=== PATIENT | male | born 1970 | race Caucasian/White ===

== ENCOUNTER 2017-05-04 01:18 | Observation (INO) | payer BC ==
--- NOTE | ~2017-05-04 | HP ---
History And Physical [place] [id number] [facility] [place]. [address] NAME: MIHAI PATEL : 72 STATUS : ADM Fadumo PAT#: [id number] AGE: 46 ADM/REG DATE : 05/04/17 MR#: [id number] REPORT SERV DATE: 05/04/17 DICTATED BY: DATE: REPORT STATUS : Draft TRANSCRIBED BY: MODL DATE: 05/04/17 DATE OF ADMISSION: 05/04/2017 CHIEF COMPLAINT: Chest pain and pressure. HISTORY OF PRESENT ILLNESS: This is a very pleasant 46-year-old white male without any cardiac history, who reports to have developed chest pain and pressure of 8/10 radiating to his left arm. He reports that he did have some nausea associated with his chest pain and feeling of "cotton mouth." He reports that he was resting, he was not doing anything to exert himself during this event. He denies having any shortness of breath, vomiting, or any diaphoresis. He does report that the chest pain lasted for about 5 to 6 hours, and was resolved by taking one nitroglycerin from the paramedics that came to pick him up from his house. He reports that the chest pain and pressure have not reoccurred since then, and he feels a lot better at this time. The patient denies any personal history of a myocardial infarction, stroke, DVT, or pulmonary embolus. The patient denies any recent fever or chills. No palpitations. No syncopal episodes. He denies PND or orthopnea. PAST MEDICAL HISTORY: The patient reports to have GERD, allergies, and generalized rash that occurred in October from an unknown source. PAST SURGICAL HISTORY: He had an appendectomy and left ankle surgery. 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 He is and has one child of his own. He denies any tobacco use. He denies any alcohol use. He denies any illicit drug use. FAMILY HISTORY: His mother had a history of hypertension and an AK at the age of 37 which she from. Father had melanoma cancer and no history of any heart problems. REVIEW OF SYSTEMS: A 14-point review of systems was performed significant for HPI. No other contributory diagnoses identified. ALLERGIES: MORPHINE, REACTION IS ITCHING. HOME MEDICATIONS: 1. Aspirin 81 mg p.o. daily. 2. B complex vitamin 1 tablet p.o. daily. 3. Protonix 40 mg p.o. daily. PHYSICAL EXAMINATION: VITAL SIGNS: Blood pressure 134/79, heart rate 69, temperature 97.7, respirations 18, and O2 saturation 95%. GENERAL: Cooperative, in no apparent distress. History And Physical [place] [address] [place]. [address] NAME: MIHAI PATEL : 72 STATUS : ADM Fadumo PAT#: [id number] AGE: 46 ADM/REG DATE : 05/04/17 MR#: [id number] REPORT SERV DATE: 05/04/17 DICTATED BY: DATE: REPORT STATUS : Draft TRANSCRIBED BY: MODL DATE: 05/04/17 HEENT: Head normocephalic, anicteric. Normal EOM. PERRLA. No xanthelasma. Nares patent. Moist mucous membranes. NECK: Trachea midline. No thyromegaly, JVD or bruits. LUNGS: Left base is mildly diminished CARDIOVASCULAR: Regular rate and rhythm. No murmur, rub or gallop appreciated. No chest wall tenderness to palpation. ABDOMEN: Soft, nontender, nondistended, normal bowel sounds auscultated throughout. No masses or organomegaly. EXTREMITIES: No peripheral edema. DP/PT and radial pulses palpable bilaterally. No clubbing or cyanosis. SKIN: Warm, dry and intact. Normal turgor. No pallor or cyanosis. NEURO/PSYCH: Alert, oriented x3 with no acute distress. Affect appropriate to current situation. LABORATORY DATA: Troponin x2 less than 0.02. Sodium 141, potassium 3.9, BUN 14, creatinine 1.10, GFR 93, glucose 94, calcium 8.4, and magnesium 2.2. White blood cells 8.9, hemoglobin 16.2, hematocrit 47.2, and platelets 148. INR 1.1. IMAGING: Chest x-ray shows small amount of nonspecific atelectasis at the left lung base. EKG showed sinus rhythm, 60. Lateral Q-waves noted, nonspecific T-wave abnormalities. surveillance system monitor shows sinus rhythm, 62. No ectopy, no pauses, no arrhythmias noted. Stress test dated 12/01/2012 showed Miller stage 3, achieved 91% max heart rate. Post exercise left ventricular ejection fraction of greater than 60%. Imaging demonstrated no ischemia as above. Overall low risk stress test. ASSESSMENT AND PLAN: 1. Chest pain. Troponins x2 have been negative. The patient denies any chest pain recurrent since that one event. His cardiac risk factors include family history. Today, we will keep the patient n.p.o. and plan an MPI. The patient has been observed to rule out myocardial infarction with serial enzymes and serial EKGs. If his stress test shows low risk or no ischemia, the patient will may be discharged to home, and follow up with his PCP in one week with all the studies being sent to the office. If anything suggestive of ischemia, Cardiology referral will be initiated at that time. 2. Gastroesophageal reflux disease. Protonix per home medication schedule. EKS/MODL Cheyenne Garcia APN / [id number] CC: Trish Kyle, MSN, [employer]- History And Physical [address] [address] NAME: MIHAI PATEL : 72 STATUS : ADM Fadumo PAT#: [id number] AGE: 46 ADM/REG DATE : 05/04/17 MR#: [id number] REPORT SERV DATE: 05/04/17 DICTATED BY: DATE: REPORT STATUS : Draft TRANSCRIBED BY: MODL DATE: 05/04/17 Nathaniel Cullen M.D.
[2017-05-04 00:33] LABS: BASOPHILS 0.4 %; BASOPHILS ABSOLUTE 0.04 10/3/uL (0.0-0.16); EOSINOPHILS 1.3 %; EOSINOPHILS ABSOLUTE 0.12 10/3/uL (0.0-0.53); ER CBC TAT 0 Hrs 00 Mins; HEMATOCRIT 47.2 % (40.0-51.0); HEMOGLOBIN 16.2 g/dL (13.6-17.8); IMMATURE GRANULOCYTES 0.3 %; IMMATURE GRANULOCYTES ABSOLUTE 0.03 10/3/uL (0.0-0.11); LYMPHOCYTES 10.3 %; LYMPHOCYTES ABSOLUTE 0.92 10/3/uL (0.67-4.30); MANUAL DIFF NO %; MEAN CORPUS HGB CONC 34.3 g/dL (32.0-36.0); MEAN CORPUSCULAR HEMOGLOB 30.4 pg (26.0-34.0); MEAN CORPUSCULAR VOLUME 88.6 fL (80-100); MEAN PLATELET VOLUME 10.9 fL (9.2-13.0); MONOCYTES 6.5 %; MONOCYTES ABSOLUTE 0.58 10/3/uL (0.21-1.20); NEUTROPHILS 81.2 %; NEUTROPHILS ABSOLUTE 7.21 10/3/uL (2.02-8.40); PLATELET COUNT 148 10/3/uL (150-400); RED CELL COUNT 5.33 10/6/uL (4.7-6.1); WHITE BLOOD CELLS 8.9 10/3/uL (4.5-10.5)
[2017-05-04 00:39] LABS: INTERNATIONAL NORMAL RATI 1.1 UNITS (-); PARTIAL THROMBO TIME 26.2 SEC (22.5-37.2); PROTIME (NOT ORD) 14.2 SEC (12.0-14.5)
[2017-05-04 00:49] LABS: BUN (BLOOD UREA NITROGEN) 14 MG/DL (6-23); CALCIUM, SERUM 8.4 MG/DL (8.5-10.4); CHEST PAIN PROFILE TAT 0 Hrs 00 Mins; CHLORIDE, SERUM 109 MMOL/L (96-112); CO2 (CARBON DIOXIDE) 27 MMOL/L (24-34); GFR AFRICAN AMERICAN 93 ML/MIN (>=60); GFR NON AFRICAN AMERICAN 81 ML/MIN (>=60); POTASSIUM, SERUM 3.9 MMOL/L (3.5-5.3); SODIUM, SERUM 141 MMOL/L (135-148); TROPONIN I <0.02 NG/ML (<0.05)
[2017-05-04 00:51] LABS: GLUCOSE, SERUM 94 MG/DL (60-99)
[~2017-05-04 01:18] MED LIST: PROTONIX PO; PROTONIX20 MG PO
[2017-05-04] MEDS ORDERED: ASAB PO (02:01)
[2017-05-04] MEDS ORDERED: VITAMIN B PO (02:02)
[2017-05-04] MEDS ORDERED: PROTONIX PO (02:02)
[2017-05-05 05:37] LABS: BASOPHILS 0.3 %; BASOPHILS ABSOLUTE 0.02 10/3/uL (0.0-0.16); EOSINOPHILS 2.8 %; EOSINOPHILS ABSOLUTE 0.19 10/3/uL (0.0-0.53); HEMATOCRIT 47.3 % (40.0-51.0); HEMOGLOBIN 16.1 g/dL (13.6-17.8); IMMATURE GRANULOCYTES 0.4 %; IMMATURE GRANULOCYTES ABSOLUTE 0.03 10/3/uL (0.0-0.11); LYMPHOCYTES 27.6 %; LYMPHOCYTES ABSOLUTE 1.85 10/3/uL (0.67-4.30); MEAN CORPUSCULAR HEMOGLOB 30.4 pg (26.0-34.0); MEAN CORPUSCULAR VOLUME 89.4 fL (80-100); MEAN PLATELET VOLUME 11.2 fL (9.2-13.0); MONOCYTES 8.7 %; MONOCYTES ABSOLUTE 0.58 10/3/uL (0.21-1.20); NEUTROPHILS 60.2 %; NEUTROPHILS ABSOLUTE 4.03 10/3/uL (2.02-8.40); PLATELET COUNT 144 10/3/uL (150-400); RBC DISTRIBUTION WIDTH 13.1 % (12.0-16.0); RED CELL COUNT 5.29 10/6/uL (4.7-6.1); WHITE BLOOD CELLS 6.7 10/3/uL (4.5-10.5)
[2017-05-05 05:39] LABS: MANUAL DIFF NO %
[2017-05-05 05:41] LABS: INTERNATIONAL NORMAL RATI 1.2 UNITS (-); PROTIME (NOT ORD) 14.6 SEC (12.0-14.5)
[2017-05-05 05:51] LABS: BUN (BLOOD UREA NITROGEN) 13 MG/DL (6-23); CALCIUM, SERUM 8.7 MG/DL (8.5-10.4); CHLORIDE, SERUM 106 MMOL/L (96-112); CO2 (CARBON DIOXIDE) 27 MMOL/L (24-34); CREATININE 1.06 MG/DL (0.70-1.30); GFR AFRICAN AMERICAN 98 ML/MIN (>=60); GFR NON AFRICAN AMERICAN 84 ML/MIN (>=60); GLUCOSE, SERUM 97 MG/DL (60-99); POTASSIUM, SERUM 3.8 MMOL/L (3.5-5.3); SODIUM, SERUM 140 MMOL/L (135-148)
[2017-05-05 05:52] LABS: CHOL/HDL RATIO(NOT ORDER) 5.6 (0-5)
== END 2017-05-05 16:33 | disposition home or self-care (01) ==
LOC: ER 01:18 → 5NO 01:39
PROVIDERS: Clinical Nurse Specialist; Nurse Practitioner Family; Specialist
DX: I25.110 Atherosclerotic heart disease of native coronary artery with unstable angina pectoris (principal); K21.9 Gastro-esophageal reflux disease without esophagitis; Z90.49 Acquired absence of other specified parts of digestive tract; Z98.890 Other specified postprocedural states; Z79.82 Long term (current) use of aspirin; Z79.899 Other long term (current) drug therapy
CPT/HCPCS: 71010; 78452; 80048; 80061; 83735; 84484; 85025; 85610; 85730; 93005; 93017; 93458; 99152; 99153; 99285; A9270-GY; A9502; C1769; C1887; C1894; G0378; J2250; J3010; Q9967